=== PATIENT | female | born 1960 | race Caucasian/White ===

== ENCOUNTER 2021-04-10 14:02 | Outpatient (CLI) | payer OTHER, SELFPAY ==
--- NOTE | ~2021-04-10 | US_ITS ---
EXAMINATION: US venous doppler LE RT DATE: 04/10/2021 14:55 INDICATION: Right lower limb swelling. TECHNIQUE: Grayscale ultrasound images without and with compression and Doppler ultrasound images of the right lower extremity veins were obtained. COMPARISON: None. FINDINGS: The visualized portions of right common femoral vein, profunda (deep) femoral vein, femoral vein, per heath veins, posterior tibial veins, and greater saphenous vein outflow are patent. There is thrombus in right popliteal vein. IMPRESSION: 1. Deep vein thrombosis involving right popliteal vein. Reviewed, dictated and finalized at location A.
== END 2021-04-10 14:03 | disposition home or self-care (01) ==
PROVIDERS: PCP Family Medicine; Visit Provider Family Medicine
DX: M79.89 Other specified soft tissue disorders (principal)
CPT/HCPCS: 93971

== ENCOUNTER 2021-04-10 16:44 | Emergency (ER) | payer OTHER, SELFPAY ==
[2021-04-10 16:50] VITALS: BP 206/60; PULSE 77; RESP 20; TEMP 37.2; O2SAT 99
--- NOTE | 2021-04-10 17:09 | ED.EXTPRO ---
HPI - Extremity Problem General Chief complaint: Extremity Problem,Nontraumatic Stated complaint: sent by dav for DVT Source: patient Mode of arrival: ambulatory History of Present Illness HPI Narrative: this is a 61-year-old female that presents with some per her doctor's request because ultrasound venous Doppler of her right lower extremity shows that she has a deep venous thrombosis involving the right popliteal vein and her primary care physician wonder sent to the ER for further evaluation. The patient currently is not having any pain there is some swelling in her right calf has good range of motion there is no shortness of breath no fever chills no abdominal pain no chest pain. Complaint: extremity swelling Onset (ago): hour(s) Location: right Related Data Allergies Allergy/AdvReac Type Severity Reaction Status Date / Time No Known Allergies Allergy Verified 04/10/21 17:17 Review of Systems Review of Systems: All systems reviewed & are unremarkable except as noted in HPI and below PMFSH Past Medical History Medical History Diabetes mellitus Exam Const: General: no acute distress and alert Orientation/consciousness: patient oriented x3 HENMT: Head: normal to inspection Eyes: Conjunctivae: conjunctivae normal Pupils: Equal, round and reactive pupils present EOM: EOMs intact bilaterally Neck: Neck: normal visual inspection, no lymphadenopathy and no meningeal signs Chest: Chest palpation & inspection: normal inspection of the chest Resp: Effort & Inspection: normal respiratory effort Auscultation: clear to auscultation bilaterally Cardio: Rate: regular rate Rhythm: regular rhythm GI: GI Palp: Yes Soft to palpation Percussion: Yes normal to percussion : General: Yes no CVA tenderness Skin: General skin exam: normal color Rashes: no rashes Neuro: General: patient oriented x3 and moves all extremities Extrem: Other: right lower extremity mildly swollen but no calf tenderness no warmth no redness Psych: Mental Status: mental status grossly normal Affect: normal affect Course Course Emergency Course: reviewed the ultrasound of her right lower extremity which shows that she has a deep venous thrombosis and will give the patient a dose of Eliquis and will sent to her pharmacy and advised her to follow-up and call her primary care physician's office in the morning. Critical Care Time Critical Care Time Critical Care Time: No Discharge Plan Discharge Clinical Impression: Deep vein thrombosis of lower extremity Qualifiers: Affected thrombotic vein of extremity: popliteal Chronicity: acute Laterality: right Qualified Code(s): I82.431 - Acute embolism and thrombosis of right popliteal vein Patient Disposition: Home, Self-Care Condition: Stable Instructions: Antibiotic Form, Deep Vein Thrombosis (ED) Additional Instructions: take medicine as prescribed and follow-up with primary care physician as soon as possible for further evaluation and treatment. Prescriptions: New Eliquis 5 mg tablet 10 mg PO BID Qty: 14 RF: 0 Follow-up/Referrals: Dav,MD Jerman [Primary Care Provider] - Time of Disposition: 17:15
[2021-04-10] MEDS: APIXABAN 2.5 MG TABLET 10 MG PO (17:11)
[2021-04-10 17:23] VITALS: BP 182/62
== END 2021-04-10 17:24 | disposition home or self-care (01) ==
PROVIDERS: Emergency Provider Emergency Medicine; PCP Family Medicine
DX: I82.431 Acute embolism and thrombosis of right popliteal vein (principal)
CPT/HCPCS: 99283; A9270